=== PATIENT | female | born 1990 | race Caucasian/White ===

== ENCOUNTER 2019-07-17 06:49 | Inpatient (IN) | payer OTHER, SELFPAY ==
[2019-07-17] VITALS (80 sets, daily range): BP systolic 107–206; BP diastolic 40–182; PULSE 30–184; RESP 16; TEMP 36.3–37.7; O2SAT 96–100; BMI 27.9
--- NOTE | 2019-07-17 06:22 | LDADM ---
This patient, Lavinia Nuñez, was admitted to Labor/Delivery/Recovery 105 on 07/17/19 at 06:49. Plans for labor, pain management and were discussed with patient. Patient/family oriented to hospital policies and general routines including ID bracelet, bed and alarms, visiting hours, pain management, procedures, bathroom and other care routines, personal items, smoking policy, room service/diet and guest tray routines, infant security routines, and visiting hours. Patient/Family are encouraged to report perceived risks to care and to ask questions if they do not understand what they are told or what they should do. See OBIX for further documentation.
[2019-07-17 07:10] LABS: Basophils Absolute Auto 0.1 K/mm3 (0.0-0.1); Basophils Percent Auto 0.4 % (0.2-1.2); Eosinophils Absolute Auto 0.3 K/mm3 (0-0.3); Eosinophils Percent Auto 2.9 % (0-4.4); Hematocrit 35.2 % (37.0-47.0); Hemoglobin 12.4 g/dL (12.0-15.0); Immature Granulocyte Absolute 0.04 K/mm3 (0.00-0.031); Immature Granulocyte Percent A 0.3 % (0-0.5); Lymphocytes Absolute Auto 1.87 K/mm3 (0.9-3.2); Lymphocytes Percent Auto 15.8 % (18.3-44.2); Mean Corpuscular HGB Conc 35.2 g/dl (32-36); Mean Corpuscular Hemoglobin 29.7 pg (26-34); Mean Corpuscular Volume 84.2 fl (80-100); Mean Platelet Volume 10.1 fl (7.4-10.4); Monocytes Absolute Auto 0.6 K/mm3 (0.1-0.6); Monocytes Percent Auto 5.4 % (2.6-8.5); Neutrophils Absolute Auto 8.9 K/mm3 (1.3-6.7); Neutrophils Percent Auto 75.2 % (45.5-73.1); Platelet Count Result 135 k/mm3 (150-375); Red Blood Count 4.18 M/mm3 (4.2-5.4); Red Cell Distribution Width 13.2 % (11.5-14.5); White Blood Count 11.9 K/mm3 (4.5-10.0)
[2019-07-17] MEDS: LACTATED RINGERS 1,000 ML 125 ML IV CONT ×3 (07:23→09:11)
[2019-07-17] MEDS: CLINDAMYCIN 900 MG/NS 50 ML 900 MG/50 ML PIGGYBACK 50 MG IVPB (07:23)
--- NOTE | 2019-07-17 07:27 | WPDOBADMIT ---
Obstetrics - Admit Note Admission Note: record reviewed. No pertinent additions to the history and/or any subsequent changes in the physical findings that are not consistent with the expected course of the were found. Pt came in to LD in active labor, AROM 4-5/80/-2 moderate amount of clear fluid Additions to the history and/or subsequent changes in the physical findings follow. None.
--- NOTE | 2019-07-17 08:36 | WPDANESEPPF ---
Anes - Initial Pre Proc Eval Date/Time: 07/17/19 08:36 Surgeon: Merrill Lewis MD Pre Op Diagnosis: Contractions Patient Data Age: 29 Gender: F Height: Weight: Last Vital Signs Pulse 87 07/17/19 08:01 BP 120/83 07/17/19 08:01 Allergies Allergy/AdvReac Type Severity Reaction Status Date / Time Penicillins Allergy Rash Verified 06/19/19 15:38 Home Medications Medication Instructions Recorded Confirmed Type PNV cmb#95-ferrous fumarate-FA 1 tablet PO DAILY 06/19/19 07/17/19 History [] ferrous sulfate [Iron (ferrous 325 mg PO DAILY 06/19/19 07/17/19 History sulfate)] levothyroxine [Synthroid] 50 mcg PO DAILY 06/19/19 07/17/19 History Laboratory Tests 07/17/19 07/17/19 07:05 07:05 WBC 11.9 K/mm3 H K/mm3 (4.5-10.0) RBC 4.18 M/mm3 L M/mm3 (4.2-5.4) Hgb 12.4 g/dL g/dL (12.0-15.0) Hct 35.2 % L % (37.0-47.0) MCV 84.2 fl fl (80-100) MCH 29.7 pg pg (26-34) MCHC 35.2 g/dl g/dl (32-36) RDW 13.2 % % (11.5-14.5) Plt Count 135 k/mm3 L k/mm3 (150-375) MPV 10.1 fl fl (7.4-10.4) Immature Gran % (Auto) 0.3 % % (0-0.5) Neut % (Auto) 75.2 % H % (45.5-73.1) Lymph % (Auto) 15.8 % L % (18.3-44.2) [place] % (Auto) 5.4 % % (2.6-8.5) Eos % (Auto) 2.9 % % (0-4.4) Baso % (Auto) 0.4 % % (0.2-1.2) Lymph # (Auto) 1.87 K/mm3 K/mm3 (0.9-3.2) [place] # (Auto) 0.6 K/mm3 K/mm3 (0.1-0.6) Eos # (Auto) 0.3 K/mm3 K/mm3 (0-0.3) Baso # (Auto) 0.1 K/mm3 K/mm3 (0.0-0.1) Abs Immat Gran (auto) 0.04 K/mm3 H K/mm3 (0.00-0.031) Absolute Neuts (auto) 8.9 K/mm3 H K/mm3 (1.3-6.7) Absolute Nucleated RBC 0.0 K/mm3 K/mm3 (0.0-0.012) Nucleated RBC % 0.0 % % (0.0-0.2) RPR Pending Patient hx anesthesia problems: none Family hx anesthesia problems: none PMFSH Past Medical History Medical History (Updated 07/17/19 @ 08:36 by Ignacio Nuñez MD) Hypothyroidism Family History Family History (Updated 06/19/19 @ 16:07 by Clyde Crowe RN) Other FH: mental illness Grandparent FH: mental illness Hypertension Diabetes mellitus Prostate carcinoma Grandparent Diverticulosis Sibling Valvular heart disease Father Hypertension Social History Social History Substance use: never Gender identity (if verbalized by the patient): Female Spiritual care concerns: No Anes - Eval Final PreProcedure Day of Procedure 07/17/19 08:36 Heart: regular rate and rhythm Lungs: clear to auscultation and normal air movement Airway: Mallampati scale class II Neurological: alert and oriented Last oral intake: >/= 8 hours ASA classification: II Emergent: no Anesthetic plan: proceed Anesthesia type and monitoring: regional epidural Informed Consent: The patient's anesthetic plan and its attendant risks and benefits were discussed with the patient/family/POA. Questions were solicited and answers provided to the satisfaction of the patient/family/POA.
[2019-07-17] MEDS: OXYTOCIN 30 UNITS/NS 500 ML 30 UNITS/500 ML BAG 999 UNITS IV CONT (11:44)
[2019-07-17] MEDS: MISOPROSTOL 200 MCG TABLET 1000 MCG RECTAL (11:55)
--- NOTE | 2019-07-17 11:55 | PM.OBPRVD ---
OB - Delivery Note Procedure Delivery date: 07/17/19 Intrapartal events: None Delivery augmentation: rupture of membranes Delivery monitor: external FHT and external uterine Laceration description: Perineal - 2nd Degree Estimated blood loss (mL): 304 Anesthesia type: Epidural Complications: Delivery of head per aRndy King delivery of shoulder and body per Fidel Wong. Repair and placenta per Leann Wong. Baby Date of : 07/17/19 Time of : 11:35 Weeks of gestation at delivery: 40 Weight (pounds): 7 Weight (ounces): 14 presentation: vertex position: Right Occiput Anterior Placenta delivery description: Spontaneous cord vessel description: 3 Vessels score one minute: 8 score five minutes: 9 Narrative: Cord gasses collected and handed off to staff. Mother and baby in stable condition.
[2019-07-17] MEDS: OXYTOCIN 30 UNITS/NS 500 ML 30 UNITS/500 ML BAG 125 UNITS IV CONT (12:20)
[2019-07-17] MEDS: WITCH HAZEL 40 PADS 1 PAD (15:15)
[2019-07-17] MEDS: BENZOCAINE 20% AER SPR (*SP) 56 GM CAN 1 SPRAY (15:15)
--- NOTE | 2019-07-17 16:30 | PC.NURSE ---
Consulted with patient, mother reports infant was more awake and eager to latch for first feeding. Mother states was on and off during feeding with more sleeping than nursing. Reviewed infant feeding cues, frequencies, duration of feedings, feeding elimination flow sheet, and signs of adequate intake. Demonstrated stimulation techniques to wake for feeding. Assisted with infant to breast. Reviewed positioning/alignment in cross cradle, holding breast in U hold and guided asymmetrical latch on. Several attempts over 15-20 minutes, was unable to latch correctly. was eager to attempt latch and unable to draw nipple in deeply. Suggested mother skin to skin and attempt again in 30 minutes calling out for assistance.
[2019-07-18 05:51] LABS: Hematocrit 31.1 % (37.0-47.0); Hemoglobin 10.6 g/dL (12.0-15.0)
[2019-07-18 07:45] VITALS: BP 116/73; PULSE 76; RESP 18; TEMP 37.1; O2SAT 99
[2019-07-18 07:56] LABS: Rapid Plasma Reagin Non-Reactive (NonReactive)
--- NOTE | 2019-07-18 09:30 | PC.NURSE ---
Consult with pt., mother reports was sleepy for most feedings. Mother has initiated pumping and is bottle feeding expressed milk. Mother states infant makes attempts and is unable to draw nipple in deeply and will quickly stop and fall asleep. Discussed the use of a nipple shield to assist with latching if she bottle feeding infant has been using an artificial nipple. Reviewed a shield may assist with latching and maintaining latch, as it will be similar to a bottle nipple. will then be able to nurse at breast and nurse mother's colostrum and bottle feeding may not be needed if nurses well with shield. Mother states she would prefer to continue with attempting and bottle feeding at this time. Offered to assist mother with feedings as she needs.
[2019-07-18] MEDS: DOCUSATE SODIUM 100 MG CAPSULE PO (10:16)
[2019-07-18] MEDS: FERROUS SULFATE 324 MG TABLET PO (10:33)
--- NOTE | 2019-07-18 14:00 | PC.NURSE ---
Assist with to breast. Mother is independently attempting with cross cradle, holding breast in U hold and guiding in asymmetrical latch. Infant will make weak attempts to latch, unable to draw nipple in. Demonstrated self expression to entice infant with colostrum. Attempt for 15 minutes, mother will pump and bottle feed. Again discussed the use of a nipple shield to assist with latching if she bottle feeding has been using an artificial nipple. Reviewed a shield may assist with latching and maintaining latch, as it will be similar to a bottle nipple. Infant will then be able to nurse at breast and nurse mother's colostrum and bottle feeding may not be needed if infant nurses well with shield. Mother states she would prefer to continue with attempting and bottle feeding at this time.
--- NOTE | 2019-07-18 14:43 | WPDANLDPN2 ---
Anes-Prog Note L&D Date/Time: 07/18/19 14:43 Comfortable throughout: labor and delivery Neuraxial method: epidural Epidural/Spinal procedure site: tender Neuro status: Neuro function grossly intact. Cardiovascular status: normal Respiratory status: normal Airway patency: baseline Mental status: baseline Post-Op hydration status: normal Vital Signs: Last Vital Signs Temp 98.8 F 07/18/19 07:45 Pulse 76 07/18/19 07:45 Resp 18 07/18/19 07:45 BP 116/73 07/18/19 07:45 Pulse Ox 99 07/18/19 07:45 Post-procedural complaints: other (multilple sticks with no relief) Patient feedback: Patient satisfied with anesthetic care.
--- NOTE | 2019-07-18 18:02 | PC.NURSE ---
Nipple shield provided to mother due to [flat nipples]. Instructions given on application and cleaning of shield. Discussed nipple shield precautions and possible complications. Patient able to return demonstration on proper application of shield. Discussed the need to initiate pumping if infant continues to nurse with the shield. Patient verbalizes understanding.
--- NOTE | 2019-07-18 18:05 | PC.NURSE ---
Breast pump provided due to [using nipple shield/ to increase stimulation/ baby not latching well]. Instructions given on breast pump care and usage, pumping schedule, nipple care, and collection and storage of breast milk. Encouraged [id number], breast massage and manual expression to stimulate supply. Pumping log provided and reviewed. Assessed patient for correct flange size, placement and draw. Patient verbalizes and demonstrates understanding of instructions.
[2019-07-18 21:36] VITALS: BP 110/59; PULSE 79; RESP 16; TEMP 36.8
[2019-07-19] MEDS: LANOLIN (LANSINOH) 7.5 GM CREAM 1 APPLIC (07:38)
[2019-07-19] MEDS: FERROUS SULFATE 324 MG TABLET PO (07:38)
[2019-07-19] MEDS: MULTIVIT/MIN/PREN/FOL AC/IRON TABLET 1 TAB PO (07:38)
[2019-07-19] MEDS: DOCUSATE SODIUM 100 MG CAPSULE PO (07:38)
--- NOTE | 2019-07-19 07:40 | PM.OBPNVD ---
OB - PN: Subj Subjective Date/time seen: 07/19/19 07:40 Patient comments: no complaints baby status: doing well [place] feeding status: breast and bottle feeding OB - PN: Obj Data Labs CBC & Chem 7: 07/18/19 04:35 Labs: Laboratory Results - last 24 hr 07/17/19 07:05 RPR Non-reactive OB - PN A/P Plan day: 2 Plan: discharge home Time Spent With Patient Time: Total time spent is greater than 50% in coordination of care (as documented) at patient's floor/unit and/or counseling patient: Review of Systems Review of Systems: All systems reviewed & are unremarkable except as noted in HPI and below Constitutional: Constitutional: Reports as per HPI Cardiovascular: Cardiovascular: Reports as per HPI Exam Const: General: comfortable Resp: Effort & Inspection: normal respiratory effort Psych: Appearance: grossly normal Affect: normal affect Attitude: cooperative
--- NOTE | 2019-07-19 07:45 | PC.NURSE ---
Pt. took synthroid from home.
[2019-07-19 08:50] VITALS: BP 113/72; PULSE 79; RESP 16; TEMP 36.8; O2SAT 100
--- NOTE | 2019-07-19 09:15 | PC.NURSE ---
0915 continued noted Mother states she attempted one feeding using the nipple shield. latched with no effort to suckle, mother states infant did not appear to like the shield. Suggested mother give a small amount of EBM/formula to then wet shield and attempt to latch. FOB reports she enjoys assist with feedings. Discussed may nurse eagerly with shield, saving time from bottle feeding and pumping. Discussed weaning techniques from shield if mother chooses to attempt again.
--- NOTE | 2019-07-19 09:15 | PC.NURSE ---
Mother reports she continues to put to breast each feeding, she will then supplement EBM/formula and will pump. Mother has a pump for home use. Discussed when to increase supplement and when to to decrease supplement once is nursing effectively. Mother reports she has a friend that is a LC that will assist her with once discharged. Mother is feeding as required and waking to feed if needed. Infant is currently meeting outcomes for weight, output, jaundice and feeding frequencies. Mother states she feels confident to continue effective at home. Reviewed transition to breast milk, signs of adequate intake, and engorgement/relief. Instructed to call ICP if intake/output less than required. Reviewed regular medications mother is taking. Information provided per Mirlande. Reviewed community resources on the [employer] website and in the Mom/Baby guide. Information on outpatient services provided. Mother has no further questions at this time.
--- NOTE | 2019-07-19 09:20 | PC.NURSE ---
Patient viewed the discharge video Mother & Baby Care, The First Two Weeks . Patient was given the opportunity and encouraged to ask questions. Patient verbalized understanding of information shared and has been given the mother/baby guide for home reference.
[2019-07-20 08:28] VITALS: BP 129/77; PULSE 88; RESP 16; TEMP 37.2; O2SAT 100
--- NOTE | 2019-07-23 03:27 | PM.OBDSVD ---
DS: Admitting Diagnosis Admitting Diagnosis Admitting Diagnosis: Encounter for supervision of normal , unspecified, unspecified trimester OB - DS: Summary OB Procedures : None OB Procedures Intrapartum: Spontaneous Vag Delivery OB Procedures: : None Time Spent with Patient Time attestation: Total time spent providing and/or coordinating discharge services: Discharge Plan Discharge Attending physician on discharge: Merrill Lewis Consulting providers: Ignacio Nuñez ; Julianna Wong ; Kristine King Discharging Clinician: Julianna Wong Patient Disposition: Home, Self-Care Activity: pelvic rest Diet: regular Discharge Instructions: Education: Mom and Baby Guide Given to: Mother Follow-Up: Call your delivering provider's office for an appointment to be seen in: 4 Weeks Mom and baby should come to the [facility] for the follow-up appointment. Appointment Date/Time: July 20, 2019 at 8:00 am What to expect at your follow-up visit: Physical Assessment Call [phone] if you are unable to keep your appointment time. BREAST CARE: 1. Wear a snug supportive bra. 2. For engorgement discomfort: Breast Feeding: A. Apply warm moist washcloths B. Express milk as needed to relieve engorgement C. Wear loose clothing 3. For sore nipples: A. Identify correct latch-on B. Apply warm moist washcloths before and after nursing C. Air dry nipples after nursing D. May apply Lansinoh cream to nipples EPISIOTOMY/PERINEAL CARE: 1. Until bleeding stops, use your massiel bottle after urinating 2. Change your pad frequently throughout the day 3. You may take sitz baths several times a day (fill your bathtub with warm water and soak for 20 minutes.) Do NOT bathe in the water 4. No tub baths until seen by your physician - You may shower ACTIVITY: 1. Rest as much as possible. 2. Do not exercise or lift anything heavier than your baby (such as laundry or other children.) 3. Avoid stairs or driving as much as possible. 4. Do not put anything into the vagina. No douching, tampons, or sexual activity until seen by physician. NOTIFY PHYSICIAN IF YOU HAVE ANY QUESTIONS OR IF ANY OF THE FOLLOWING SYMPTOMS OCCUR: 1. If your episiotomy or incision becomes red, swollen, or more painful than what you have experienced in the hospital. 2. If your vaginal bleeding becomes foul smelling. 3. If your vaginal bleeding becomes more heavy than a period or if your bleeding changes from pink to bright red. However, you may pass an occasional walnut-sized clot once or twice for the first week . 4. If you experience a sharp, shooting pain in you calves. 5. If you discover a hard, reddened area on your breast or if you experience flu-like symptoms. DIET: 1. Eat regular, well-balanced meals. 2. Drink plenty of fluids daily. If , drink to thirst. Stand Alone Forms: General Discharge Information Follow-up/Referrals: Julianna Wong CNM [Certified Nurse [employer]] - 4 Weeks Discharge Medications: Continued levothyroxine [Synthroid] 50 mcg Tablet 50 mcg PO DAILY RF: 0 ferrous sulfate [Iron (ferrous sulfate)] 325 mg (65 mg iron) Tablet 325 mg PO DAILY RF: 0 PNV cmb#95-ferrous fumarate-FA [] 28 mg iron- 800 mcg Tablet 1 tablet PO DAILY RF: 0 Date of admission: 07/17/19 06:49 Primary Care Provider: AngelinaAlexandrea Admitting Provider: Merrill Lewis Discharge Date/Time: 07/19/19 11:36 Attending physician on admission: Merrill Lewis
== END 2019-07-19 11:36 | disposition home or self-care (01) | DRG 807 ==
LOC: ANHLDR 06:50 → ANHOB2 15:27
PROVIDERS: Advanced Practice Midwife; Admitting Provider Obstetrics & Gynecology; PCP Registered Nurse; Visit Provider Obstetrics & Gynecology
DX: O99.824 Streptococcus B carrier state complicating childbirth (principal); Z37.0 Single live birth; O70.1 Second degree perineal laceration during delivery; Z3A.40 40 weeks gestation of pregnancy
CPT/HCPCS: 36415; 85014; 85018; 85025; 86592; 86850; 86900; 86901; A9270; J2590; J2795; J3010; J7120

== ENCOUNTER → 2019-10-23 13:47 | Outpatient (CLI) | payer OTHER, SELFPAY ==
--- NOTE | ~2019-10-23 | MR_ITS ---
EXAMINATION: MR knee RT wo con DATE: 10/23/2019 14:30 INDICATION: Right knee pain TECHNIQUE: Magnetic resonance imaging (MRI) of the right knee was performed without intravenous contr ast. Sequences included coronal PD-weighted FSE, coronal PD-weighted FS FSE, sagittal T2-weighted FS E, sagittal PD-weighted FS FSE and axial PD weighted fat saturated FSE. COMPARISON: None. FINDINGS: Medial compartment: Medial meniscus is normal. Articular cartilage is normal. Lateral compartment: Lateral meniscus is normal. Articular cartilage is normal. Patellofemoral compartment: Articular cartilage is normal. Ligaments and tendons: Anterior and posterior cruciate ligaments are normal. The medial collateral ligament and fibular zamzam ateral ligament complex are normal. The extensor mechanism is normal. The visualized medial and later al hamstring tendons as well as the iliotibial band are normal. Fluid: There is moderate distention of the suprapatellar pouch as well as the posterior and popliteal recess is of the knee resulting from a combination of a small joint effusion and marked diffuse synovitis. There is no significant also synovial signal on the gradient-echo Returns Supervisor images as would typically be seen with pigmented villonodular synovitis. There is a suprapatellar plical band. No loose osteochond ral bodies identified. Very small Mendes's cyst. Osseous/other: There appears be an erosion at the insertion of the popliteus tendon. No fracture or pathologic marro w replacing process. Mild scarring at the medial and lateral aspects of Hoffa's fat pad likely relate d to reported prior arthroscopy. IMPRESSION: 1. Small knee joint effusion with extensive bulky synovitis throughout the right knee joint of indete rminate etiology. 2. Suggestion of a small erosion at the lateral condylar insertion of the popliteus tendon. 3. Normal cartilage, menisci and stabilizing ligaments. Reviewed, dictated and finalized at location A. IMPRESSION: 1. Small knee joint effusion with extensive bulky synovitis throughout the righ t knee joint of indeterminate etiology. 2. Suggestion of a small erosion at the lateral condylar insertion of the popli teus tendon. 3. Normal cartilage, menisci and stabilizing ligaments.
== END ==
PROVIDERS: PCP Registered Nurse; Visit Provider Nurse Practitioner Family
DX: M25.461 Effusion, right knee (principal)
CPT/HCPCS: 73721

== ENCOUNTER 2019-11-13 12:42 | Outpatient (CLI) | payer OTHER, SELFPAY ==
--- NOTE | ~2019-11-13 | US_ITS ---
EXAMINATION: 1. US_ABSCYSTIMG_US 2. US biopsy st muscle DATE: 11/13/2019 13:50 INDICATION: Right knee pain and synovitis. TECHNIQUE: A time-out was performed to verify the patient's name, date of , and procedure to b e performed. The procedure including the risks, benefits, and alternatives was discussed with the pat ient. Risks discussed included bleeding and infection. The patient understood the risks and agreed to proceed. The skin overlying the right knee joint was prepped and draped in usual sterile fashion. Anesthetic was administered with 1% lidocaine subcutaneously. An 18 G needle was advanced under ultr asound into the joint. Fluid was aspirated. An 18 gauge core needle biopsy was then used to obtain 3 cores of the synovium under ultrasound guidance. The entry site was cleaned and dressed. There were no immediate complications. FINDINGS: Real-time ultrasound demonstrates the needles in the right knee joint. IMPRESSION: 1. Ultrasound-guided right knee joint aspiration. 2. Ultrasound-guided right knee synovium core needle biopsy. Reviewed, dictated and finalized at location A. IMPRESSION: 1. Ultrasound-guided right knee joint aspiration. 2. Ultrasound-guided right knee synovium core needle biopsy.
[2019-11-13 15:34] LABS: Appearance Synovial Fluid Cloudy (Clear); Color Synovial Fluid Yellow (Colorless); Lymphocytes Synovial Fluid 23 %; Macrophages Synovial Fluid 5 %; Neutrophils Synovial Fluid 72 % (0-25); Nucleated Cell Synovial Fluid 4858 /uL (0-200); RBC Synovial Fluid 3187 /uL (0-0); Source Synovial Fluid Synovial fluid
[2019-11-13 17:10] LABS: Crystals Synovial Fluid None Seen (None Seen)
== END 2019-11-13 12:43 | disposition home or self-care (01) ==
PROVIDERS: Radiology Diagnostic Radiology; PCP Registered Nurse; Visit Provider Nurse Practitioner Family
DX: M25.561 Pain in right knee (principal)
CPT/HCPCS: 10160; 20206; 76942; 87070; 87075; 87205; 88108; 88305; 89051; 89060

== ENCOUNTER 2021-05-31 17:46 | Emergency (ER) | payer BC, SELFPAY ==
--- NOTE | 2021-05-31 18:16 | ED.URI ---
HPI - URI/Sore Throat General Chief Complaint: Upper Respiratory Infection Stated Complaint: sorethroat Time Seen by Provider: 05/31/21 18:59 Source: patient and RN notes reviewed Mode of arrival: ambulatory Limitations: no limitations History of Present Illness HPI Narrative: 31-year-old female presents with concern for sore throat, stuffy nose for 4 days. Reports she has been trying Zyrtec without relief. She denies shortness of breath, body aches, chills, fever, sweats. Reports occasional cough. She reports her daughter has cold symptoms MD elicited complaint: sore throat and nasal congestion Related Data Home Medications Medication Instructions Recorded Confirmed levothyroxine [Synthroid] 50 mcg PO DAILY 06/19/19 05/31/21 adalimumab [Humira(CF) Pen] 40 mg SUBCUT DIRECTED 05/31/21 05/31/21 Allergies Allergy/AdvReac Type Severity Reaction Status Date / Time amoxicillin Allergy Unknown Unknown Verified 05/31/21 18:54 Penicillins Allergy Rash Verified 05/31/21 18:54 AMOXICILLIN/CLAVULANATE K Allergy Y Uncoded 05/31/21 18:54 (Generic Allergy) Review of Systems Review of Systems: CONSTITUTIONAL: Denies malaise, chills, sweats, or fever. EYES: Denies visual changes, redness, or discharge. ENT: Reports rhinorrhea, congestion, and sore throat. CARDIOVASCULAR: Denies chest pain, palpitations, or edema. RESPIRATORY: Reports occasional cough. Denies dyspnea. GASTROINTESTINAL: Denies abdominal pain, nausea, vomiting, diarrhea SKIN: Denies rash or itching. MUSCULOSKELETAL: Denies myalgia. NEUROLOGIC: Denies headache. All systems reviewed & are unremarkable except as noted in HPI and below PMFSH Past Medical History Medical History Bilateral knee pain Chronic headaches Hypothyroidism Joint effusion of knee Joint pain Medial meniscus tear Patellofemoral pain syndrome Psoriasis Surgical History Surgical History History of arthroscopy Dr. Velasco 2007 Family History Family History Other FH: mental illness Grandparent FH: mental illness Hypertension Diabetes mellitus Prostate carcinoma Grandparent Diverticulosis Sibling Valvular heart disease Father Hypertension Grandparent Hypertension Malignant neoplasm of prostate FH: mental illness Family history of malignant neoplasm of brain Family history of type 2 diabetes mellitus Father Hypertension Social History Social History Smoking status: Never smoker Second hand tobacco smoke exposure: No Alcohol intake: current Alcohol use details: 1-2 per week Substance use: never Additional occupation/education comments: RN at the [employer] Gender identity (if verbalized by the patient): Female Spiritual care concerns: No Comments At time of signature, agree with nursing past medical, surgical, social and family history. There is no relevant family history pertinent to the presenting complaint Exam Narrative: GENERAL: Well-appearing, well-nourished, and in no acute distress. HEAD: Normocephalic EYES: PERRLA, conjunctivae clear ENT: Nares clear, turbinates edematous and erythematous, clear discharge. Mucous membranes moist. TM pearly riley with dull light reflex bilaterally; no tragal tenderness. Oropharynx not erythematous without lesions. Tonsils not enlarged and without exudate, no drooling, no hoarseness, no trismus, uvula midline. NECK: Supple. No lymphadenopathy CHEST: Clear to auscultation, breath sounds equal. No wheezing, rhonchi, rales, or stridor. No respiratory distress, speaks in full sentences. HEART: Regular rate and rhythm. No murmur heard. SKIN: Warm, dry, no rash. NEURO: Alert and oriented x3. PSYCH: Normal mood and affect Course Course Emergency Course: Patient is aware of diagnosis, unde
[2021-05-31 18:38] VITALS: BP 132/79; PULSE 67; RESP 18; TEMP 36.4; O2SAT 100
== END 2021-05-31 19:07 | disposition home or self-care (01) ==
PROVIDERS: Emergency Provider Nurse Practitioner; PCP Registered Nurse
DX: J06.9 Acute upper respiratory infection, unspecified (principal); E03.9 Hypothyroidism, unspecified
CPT/HCPCS: 87081; 87880; 99213; G0463

== ENCOUNTER 2023-10-20 02:00 | Day surgery (SDC) | payer BC, SELFPAY ==
[2023-10-13 10:47] VITALS: BMI 25.3
--- NOTE | 2023-10-13 10:57 | PC.NURSE ---
Report to the Outpatient Waiting Room, entrance under the green pavilion located off [facility], at 0600 on 10/20/23. Planned Procedure Time: 0730.? Time changes happen often and if your time is changed the preop area will call you the afternoon before. - You and your visitor will be asked to self-screen and do not enter if you have any COVID symptoms. Please call surgeon if you need to reschedule. - A mask is optional within the hospital at this time. Patients may have clear liquids (water, carbonated beverages, clear teas, apple juice) until 3 hours prior to surgery with a maximum of 20 ounces. - No food from midnight until time of surgery and no smoking Take only the following medications with a SIP of water on the morning of surgery: Levothyroxine and Duloxetine DO NOT STOP ANY OF YOUR OTHER PRESCRIPTION MEDICATIONS PRIOR TO SURGERY EXCEPT THE FOLLOWING Medications to discontinue per physician Date to take last dose Please no make-up, nail english, hairspray, perfume, deodorant, or body powder the day of surgery.? No jewelry (including any body piercings) or valuables the day of surgery, leave them at home.? Please take a shower or bath the night before, or the morning of, surgery with an antibacterial soap.? Wear comfortable, loose fitting clothing.? - Jewelry must be removed prior to entering the operating room.? Rings and piercings that are not removed may be cut off. - The hospital will not accept responsibility for valuables.? - Please leave all valuables, including medications, at home the day of surgery. If you are going home after surgery, a licensed residential recycle driver must drive you home.? - NO public transportation without another adult if you receive anesthesia. - We recommend that an adult stay with you for 24 hours following discharge. - We also recommend that you do not drive, make important decision, drink alcoholic beverages, or take any drugs that were not prescribed by your health care provider for at least 24 hours after your discharge time. Follow any additional instructions given to you from your surgeon. Telephone instructions given to patient and asked if any additional questions and then verbalized understanding. Patient advised to call surgeon office or pre surgery nurse liaison [phone] if any additional questions.
[2023-10-20] VITALS (8 sets, daily range): BP systolic 110–153; BP diastolic 63–97; PULSE 76–90; RESP 12–20; TEMP 36.4–36.6; O2SAT 100
[2023-10-20] MEDS: LACTATED RINGERS 1,000 ML 30 ML IV CONT ×2 (06:35→08:13)
[2023-10-20] MEDS: ACETAMINOPHEN 500 MG TABLET 1000 MG PO (06:35)
[2023-10-20] MEDS: KETOROLAC 15 MG/ML VIAL (*BKC) IV PUSH (06:56)
[2023-10-20 06:57] LABS: BEDSIDEPREGUCG Negative
--- NOTE | 2023-10-20 07:19 | PM.IMHP ---
H&P: HPI History of Present Illness Date/Time: 10/20/23 07:19 Chief Complaint: desires sterilization Narrative: Patient is a 33 year old who presents for bilateral salpingectomy. She has completed childbearing and desires permanent sterilization. We have discussed other nonpermanent options for contraception and she declines. She has no significant past surgical history. Risks and benefits of the procedure have been discussed and patient voices understanding. Review of Systems Review of Systems: All systems reviewed & are unremarkable except as noted in HPI and below PMFSH Past Medical History Medical History Bilateral knee pain Chronic headaches Hypothyroidism Joint effusion of knee Joint pain Medial meniscus tear Patellofemoral pain syndrome Psoriasis Surgical History Surgical History History of arthroscopy Dr. Velasco 2007 Family History Family History Other FH: mental illness Grandparent FH: mental illness Hypertension Diabetes mellitus Prostate carcinoma Grandparent Diverticulosis Sibling Valvular heart disease Father Hypertension Grandparent Hypertension Malignant neoplasm of prostate FH: mental illness Family history of malignant neoplasm of brain Family history of type 2 diabetes mellitus Father Hypertension Social History Social History Smoking status: Never smoker Second hand tobacco smoke exposure: No Alcohol intake: current Drinks per week: 2 Alcohol use details: 1-2 per week Substance use: current Substance use type: marijuana Other substance usage details: 1-2x/week Living arrangements: with family Occupation/Education: occupation Additional occupation/education comments: RN at the [employer] Gender identity (if verbalized by the patient): Female Spiritual care concerns: No Meds Home Medications and Allergies Home Medications Medication Instructions Recorded Confirmed Type levothyroxine 50 mcg tablet 50 mcg PO DAILY 06/19/19 10/20/23 History (Synthroid) duloxetine 30 mg capsule,delayed 30 mg PO BID 10/13/23 10/20/23 History release folic acid 1 mg tablet 1 mg PO DAILY 10/13/23 10/20/23 History guselkumab 100 mg/mL subcutaneous See Rx Instructions .Route .COMPLEX 10/13/23 10/20/23 History auto-injector (Tremfya) methotrexate sodium 2.5 mg tablet mg PO WEEKLY 10/13/23 History norethindrone 1 mg-ethinyl 1 tablet PO DAILY 10/13/23 10/20/23 History estradiol 10 mcg (24)-iron 10 mcg(2) tablet (Lo Loestrin Fe) Allergies Allergy/AdvReac Type Severity Reaction Status Date / Time ixekizumab Allergy Severe full body Verified 10/20/23 06:13 [From Taltz Autoinjector] edema/rash amoxicillin Allergy Unknown Rash Verified 10/20/23 06:13 Penicillins Allergy Unknown Rash Verified 10/20/23 06:13 AMOXICILLIN/CLAVULANATE K Allergy Unknown Rash Uncoded 10/20/23 06:13 (Generic Allergy) Vital Signs Vital Signs - 24 hr 10/20/23 06:53 Temperature 97.8 F Pulse Rate 80 Respiratory Rate 16 Blood Pressure 110/63 Pulse Oximetry 100 Oxygen Delivery Room Air Exam Const: General: comfortable and no acute distress HENMT: Mouth: Yes moist mucous membranes Resp: Effort & Inspection: normal respiratory effort Cardio: Rate: regular rate Skin: General skin exam: normal color Extrem: General: normal to inspection Psych: Mental Status: mental status grossly normal Affect: normal affect Assessment and Plan Assessment and plan (1) Admission for sterilization: Code(s): Z30.2 - Encounter for sterilization Status: Acute Assessment and Plan: - risks and benefits of bilateral salpingectomy discussed, including that this is not reversible - patient voices understanding
--- NOTE | 2023-10-20 07:21 | P.PNAN_ITS ---
Anes - Eval Final PreProcedure Day of Procedure 10/20/23 07:21 Patient weight: normal Heart: regular rate and rhythm Lungs: clear to auscultation Airway: Mallampati scale class II Neurological: alert and oriented Last oral intake: >/= 8 hours ASA classification: III Emergent: no Anesthetic plan: proceed Anesthesia type and monitoring: general ETT and standard monitoring Results Review: All pre-operative results and documents have been reviewed as part of the pre- operative evaluation. Informed Consent: The patient's anesthetic plan and its attendant risks and benefits were discussed with the patient/family/POA. Questions were solicited and answers provided to the satisfaction of the patient/family/POA.
--- NOTE | 2023-10-20 07:22 | WPDHPUPDATE1 ---
History and Physical Update Update Date/Time: 10/20/23 07:22 History and Physical has been reviewed, including an updated exam of the patient. There are NO changes in the patient's condition. Risks, benefits, and alternatives have been discussed and questions answered. Patient agrees to proceed with procedure.
--- NOTE | 2023-10-20 08:04 | P.OP_ITS ---
Procedure Note - Detailed Date of Procedure 10/20/23 Pre-op Diagnosis Desires Sterilization Post-op Diagnosis Same Procedure Performed laparoscopic bilateral salpingectomy Surgeon Larry Mora MD Anesthesia General Findings normal appearing uterus, bilateral fallopian tubes and ovaries Description of Procedure With IV fluids infusing, the patient was taken to the operating room. The patient was placed in supine position. General anesthesia with endotracheal in tubation was given. A time-out took place. The patient was placed in dorsal lithotomy position using Kan stirrups and she was prepped and draped in the usual sterile fashion. The bladder was drained using a red rubber catheter. A sterile speculum was placed vaginally, the anterior lip of the cervix was grasped with a single-tooth tenaculum and the acorn uterine manipulator was placed without difficulty. The speculum was removed. The surgeon's gloves were changed and attention was turned to the abdomen. A 5 mm incision was made in the umbilicus. Under direct visualization with the scope, the umbilical port was inserted without difficulty. Another two trocars were placed under direct visualization in the left upper and lower quadrants. The patient was placed in Trendelenburg and inspection of the pelvis noted the above findings. Appropriate pictures were taken. Using the LigaSure devise, a left salpingectomy was performed in the usual fashion. Care was taken to avoid the IP ligament. The salpingectomy went smoothly. The same procedure was repeated on the right side. The instruments were all removed from the abdomen and the CO2 gas was allowed to escape. The three skin incisions were reapproximated with 4-0 Vicryl in a subcuticular manner, followed by skin glue. The acorn manipulator and single tooth tenaculum was removed from the uterus and cervix, respectively. The tenac ulum sites were hemostatic. All instruments were removed from the vagina. At the end of the case, instrument, sponge and needle counts were correct x 2. The patient was awakened from general anesthesia and was taken to PACU in stable condition. Estimated Blood Loss 10 Pathology Yes Complications No immediate complications Condition Stable Disposition Same day
--- NOTE | 2023-10-20 09:03 | SUR.PHASEI ---
Dr. Vásquez aware of elevated BP and just wants to monitor at this time.
[2023-10-20] MEDS: oxyCODONE HCL (*CRX) 5 MG TAB IR PO (09:15)
== END 2023-10-20 10:10 | disposition home or self-care (01) ==
PROVIDERS: PCP Registered Nurse; Visit Provider Obstetrics & Gynecology
PROC: (CPT 49320; principal; 2023-10-20 07:30)
DX: Z30.2 Encounter for sterilization (principal); E03.9 Hypothyroidism, unspecified; L40.9 Psoriasis, unspecified; F12.90 Cannabis use, unspecified, uncomplicated; Z79.620 Long term (current) use of immunosuppressive biologic; Z79.631 Long term (current) use of antimetabolite agent
CPT/HCPCS: 58661; 88302; A9270; J0330; J1100; J1885; J2250; J2405; J2704; J3010; J7030; J7120